=== PATIENT | male | born 1985 | race Caucasian/White ===

== ENCOUNTER 2021-03-10 10:44 | Emergency (ER) | payer OTHER, SELFPAY ==
[2021-03-10 10:47] VITALS: BP 113/93; PULSE 104; RESP 18; TEMP 36.6; O2SAT 97; BMI 36.9
--- NOTE | 2021-03-10 11:49 | PM.EVENT ---
Event Note Date of Service: 03/10/21 Event Note: Patient is a 36 year old male who presented to ED after presenting to [facility] and finding that is was closed due to the holiday. Patient reports that [facility] where he is residing had been on lockdown due to COVID and had received take home bottles until yesterday. He was unaware clinic was closed Patient presented with med box and 11 empty bottles of methadone all with his name and current dose of 115mg daily. Bottles were dispensed on 02/27. Patient also presented with medication administration record from [facility] that shows daily administration of take home bottles totaling all 11 with last dose given yesterday 03/09 @0710. Patient quite anxious about possibility of not getting his dose today. This underwriter solicitation director reviewed all documentation and it is appropriate to administer methadone dose for today given that clinic is closed. Discussed with provider, 115mg dose to be ordered and last dose letter to be given to patient to present with at [facility] tomorrow (03/11). (documents to be scanned into EMR)
[2021-03-10] MEDS: methADONE HCl 20 MG/2 ML ORAL.CONC 115 MG PO (12:10)
--- NOTE | 2021-03-10 12:17 | MHC.RECOVSUP ---
Recovery Support note: Patient presented to [facility] [place] care home due to methadone clinic being closed. Patient has empty dose bottles and lock box. Patient was medicated with methadone. Last dose letter provided. correction will pick patient up. Discussed case with Jackie Pacheco NP and patient's ED provider.
--- NOTE | 2021-03-10 12:27 | ED_ITS ---
HPI - General Adult General Chief complaint: General Medical Stated complaint: Methadone dose Time Seen by Provider: 03/10/21 11:30 Source: patient Mode of arrival: ambulatory History of Present Illness HPI narrative: 36-year-old male with no sig past medical history substance abuse on Methadone presenting ED for methadone dose due to clinic being closed today. reports increased feelings of anxiety. Denies SI/HI. Denies relapse on illicit substances or EtOH. Onset (ago): day(s) Related Data Allergies Allergy/AdvReac Type Severity Reaction Status Date / Time No Known Allergies Allergy Unverified 03/10/21 11:30 Review of Systems Review of Systems: Constitutional: No Fever, No Chills, No Fatigue, No Malaise ENT/Mouth: No Ear Pain, No Nasal Congestion Eyes: No Eye Pain, No Swelling, No RednessNo Vision Changes Cardiovascular: No Chest Pain, No SOB Respiratory: No Cough, No Dyspnea Gastrointestinal: No Nausea, No Vomiting, No Diarrhea, No Constipation, No Abdominal pain Genitourinary: No Dysuria, No Hematuria Musculoskeletal: No joint pain, No Myalgias, No Joint Swelling Skin: No Skin Lesions, No rash Neuro: No Weakness, No Headache Psych: + Anxiety/Panic, No Depression, No SI/HI/AH/VH Yes all other systems are reviewed and are negative [facility] Past Medical History Attestation statement: The following information was validated with the patient. Medical History No known health problems Physical Exam Vital Signs: Vital Signs: Last Vital Signs Temp 98 F 03/10/21 10:47 Pulse 104 H 03/10/21 10:47 Resp 18 03/10/21 10:47 BP 113/93 H 03/10/21 10:47 Pulse Ox 97 03/10/21 10:47 BMI result Body Mass Index 36.9 Const: Other: anxious General: cooperative, healthy appearing, comfortable and no acute distress Orientation/consciousness: patient oriented x3 Limitations: no limitations HENMT: Head: Yes normal to inspection and Yes atraumatic Ears: hearing grossly normal bilaterally General nose exam: Normal external nose present Face and sinus: Yes normal facial exam Eyes: General: appearance normal, both eyes and all related structures EOM: EOMs intact bilaterally Neck: Neck: Yes normal visual inspection and Yes no meningeal signs Resp: Effort & Inspection: normal respiratory effort and no respiratory distress Cardio: Rate: regular rate and tachycardic Heart sounds: S1 normal heart sound present and S2 normal heart sound present GI: Inspection: Yes normal to inspection Palpation (GI): Soft to palpation, nontender, no guarding and not rigid Skin: Rashes: no rashes Wounds: no wounds Neuro: General: patient oriented x3 and no meningeal signs Gait exam (Neuro): Normal gait present Extrem: General: Yes normal to inspection Psych: Thought content: suicidality and no homicidality Medical Decision Making MDM Narrative Medical decision making narrative: 36-year-old male with no sig past medical history substance abuse on Methadone presenting ED for methadone dose due to clinic being closed today. reports increased feelings of anxiety. On exam mildly tachycardic, anxious, in no apparent distress. Methadone does verified by Jackie Pacheco, patient received 115mg today Medical Records Medical records reviewed: Yes I reviewed the patient's medical records. Lab Data Lab results reviewed: Yes I reviewed the patient's lab results. Discharge Plan Discharge Clinical Impression: Methadone use Patient Disposition: Home, Self-Care Additional Instructions: you were given your dose of methadone today follow-up in the clinic for your next dose Referrals: Sin Bryant MD [Primary Care Provider] - 2 days Interventions: ED Discharge Assessment Last Done: 03/10/21 12:37 Discharge Date/Time: 03/10/21 12:38
== END 2021-03-10 12:38 | disposition home or self-care (01) ==
PROVIDERS: Emergency Provider Emergency Medicine; PCP Internal Medicine
DX: F11.20 Opioid dependence, uncomplicated (principal); F41.9 Anxiety disorder, unspecified
CPT/HCPCS: 99283